=== PATIENT | female | born 1960 | race Caucasian/White ===

== ENCOUNTER 2018-03-10 09:56 | Outpatient (CLI) | payer MEDICARE | END 2018-03-10 09:57 | disposition home or self-care (01) | LOC: BICMAMMO 09:56 | PROVIDERS: ATTEND Nurse Practitioner Family | DX: Z12.31 Encounter for screening mammogram for malignant neoplasm of breast (principal); Z80.3 Family history of malignant neoplasm of breast | CPT/HCPCS: 77063; 77067 ==

== ENCOUNTER 2019-05-09 08:16 | Outpatient (CLI) | payer MEDICARE ==
--- NOTE | 2019-05-09 09:41 | MMO ---
Bilateral MAMMO Bilat Screen [facility]. CLINICAL HISTORY: Patient is 58 years old and is seen for screening. The patient has the following family history of breast cancer: 2 cousin females, maternal and great grandmother, maternal. The patient has no personal history of cancer. VIEWS: The views performed were: bilateral craniocaudal with tomosynthesis and bilateral mediolateral oblique with tomosynthesis. FILMS COMPARED: The present examination has been compared to prior imaging studies performed at [facility] on 10/16/2014, 12/17/2015, 12/18/2016 and 03/10/2018. MAMMOGRAM FINDINGS: The breasts are almost entirely fat. There are no suspicious masses, suspicious calcifications, or new areas of architectural distortion. IMPRESSION: THERE IS NO MAMMOGRAPHIC EVIDENCE OF MALIGNANCY. A ROUTINE FOLLOW-UP MAMMOGRAM IN 1 YEAR IS RECOMMENDED. THE RESULTS OF THIS EXAM WERE SENT TO THE PATIENT. ACR BI-RADS Category 1 - Negative MAMMOGRAPHY NOTE: 1. A negative mammogram report should not delay a biopsy if a dominant of clinically suspicious mass is present. 2. Approximately 10% to 15% of breast cancers are not detected by mammography. 3. Adenosis and dense breasts may obscure an underlying neoplasm. Reported by: LANEY NICHOLS MD Electonically Signed: [id number]
== END 2019-05-09 08:17 | disposition home or self-care (01) ==
LOC: BICMAMMO 08:16
PROVIDERS: ATTEND Nurse Practitioner Family
DX: Z12.31 Encounter for screening mammogram for malignant neoplasm of breast (principal); Z80.3 Family history of malignant neoplasm of breast
CPT/HCPCS: 77063; 77067

== ENCOUNTER 2022-09-09 13:08 | Inpatient (IN) | payer MEDICARE, OTHER, SELFPAY ==
[~2022-09-09 13:08] MED LIST: Iopamidol-370 76% 500 ML 1 ML ONE
[2022-09-09] MEDS ORDERED: Ondansetron PF 4 MG/2 ML Vial ONE (13:24)
[2022-09-09 13:50] LABS: Hemoglobin 16.1 g/dL (12.0-16.0); Mean Corpuscular HGB CONC 33.5 g/dL (32.0-36.0); Mean Corpuscular Hemoglobin 33.1 pg (27.0-31.0); Platelet Count 376 10x3/uL (130-400); RBC Distribution Width 13.9 % (11.5-14.5); Red Blood Cell (RBC) Count 4.85 mill/uL (4.20-5.40); White Blood Cell (WBC) Count 19.2 10x3/uL (4.8-10.8)
[2022-09-09 14:14] LABS: Band 2 % (5-11); Lymphocytes 9 % (21-51); MDiff Complete? YES; Monocytes 9 % (0-10); Neutrophil 80 % (42-75); Platelet Morphology Comment Appears Adequate; RBC Morphology Normal
[2022-09-09 14:19] LABS: Bacteria/HPF 4+ HPF (None Seen); Bilirubin Negative (Negative); Blood, Urine 1+ (Negative); Glucose, Urine (Dipstick) Normal (Negative); Ketone, Urine Negative (Negative); Leukocyte 500 Leu/uL (Negative); Nitrite Negative (Negative); Protein, Urine (Dipstick) 20 mg/dL (Neg-Trace); Specific Gravity, Urine 1.011 (1.002-1.036); Squamous Epithelial None Seen HPF (0-3); Urobilinogen Normal mg/dL (Less than 2); WBC/HPF Greater than 50 HPF (0-3)
[2022-09-09 14:21] LABS: Clarity Turbid (Clear)
[2022-09-09] MEDS ORDERED: cefTRIAXone\\ROCEPHIN 1 GM VIAL ONE (15:03)
[2022-09-09] MEDS ORDERED: VANCOMYCIN 1.75 GM/500 ML BAG 1.75 GM in Premix Bag 1 BAG IVPB SCH (15:15)
[2022-09-09 15:24] LABS: Albumin 3.3 g/dL (3.4-4.8)
[2022-09-09 15:25] LABS: Chloride 93 mmol/L (98-107)
[2022-09-09 15:26] LABS: Calcium 10.2 mg/dL (7.8-10.44); Potassium 3.1 mmol/L (3.5-5.1); Sodium 130 mmol/L (136-145)
[2022-09-09 15:27] LABS: Glucose 103 mg/dL (80-115); Protein, Total 7.3 g/dL (5.8-8.1)
[2022-09-09 15:28] LABS: Anion Gap 14 mmol/L (10-20); Carbon Dioxide 26 mmol/L (23-31)
[2022-09-09 15:30] LABS: Alkaline Phosphatase 172 U/L (40-110); Calc. Creatinine Clearance 0 mL/min (70-130); Estimated GFR 33
[2022-09-09 15:31] LABS: BUN (Urea Nitrogen) 51 mg/dL (9.8-20.1)
[2022-09-09 15:32] LABS: AST (SGOT) 30 U/L (5-34)
[2022-09-09 15:33] LABS: ALT (SGPT) 32 U/L (8-55); Lipase 43 U/L (8-78)
[2022-09-09 18:02] LABS: SARS-CoV-2 NAA Rapid Test Not Detected (NotDetected)
[2022-09-09] MEDS ORDERED: Ondansetron ODT 4 MG TAB PO PRN (18:05)
[2022-09-09] MEDS ORDERED: Guaifenesin DM 100-10/5 ML UDCUP PO PRN (18:05)
[2022-09-09] MEDS ORDERED: Ondansetron PF 4 MG/2 ML Vial IVP PRN (18:05)
[2022-09-09] MEDS ORDERED: Acetaminophen 325 MG TAB PO PRN (18:05)
[2022-09-09] MEDS ORDERED: Acetaminophen 650 MG Suppository PR PRN (18:05)
[2022-09-09] MEDS ORDERED: Sodium Chloride 0.9% 1,000 ML IV SCH (18:15)
[2022-09-09] MEDS ORDERED: Bisacodyl 5 MG TAB PO SCH (18:15)
[2022-09-09] MEDS ORDERED: Famotidine 20 MG TAB PO SCH (21:00)
[2022-09-09] MEDS ORDERED: Famotidine/PF 20 mg/2ml Vial SLOW IVP SCH (21:00)
[2022-09-10] MEDS ORDERED: Midodrine HCl 5 MG TAB PO SCH (02:15)
[2022-09-10] MEDS: Potassium Chloride 10 MEQ in Premix Bag 1 BAG IVPB SCH ×4 (05:46→12:47)
[2022-09-10 07:23] LABS: Hemoglobin 13.3 g/dL (12.0-16.0); Mean Corpuscular HGB CONC 33.5 g/dL (32.0-36.0); Mean Corpuscular Hemoglobin 32.9 pg (27.0-31.0); Mean Corpuscular Volume 98.3 fl (78.0-98.0); Mean Platelet Volume 7.6 fL (7.4-10.4); Platelet Count 332 10x3/uL (130-400); RBC Distribution Width 13.6 % (11.5-14.5); Red Blood Cell (RBC) Count 4.03 mill/uL (4.20-5.40); White Blood Cell (WBC) Count 15.6 10x3/uL (4.8-10.8)
[2022-09-10 07:48] LABS: Anion Gap 17 mmol/L (10-20); BUN (Urea Nitrogen) 42 mg/dL (9.8-20.1); Calc. Creatinine Clearance 60 mL/min (70-130); Calcium 9.6 mg/dL (7.8-10.44); Carbon Dioxide 24 mmol/L (23-31); Chloride 93 mmol/L (98-107); Estimated GFR 43; Glucose 82 mg/dL (80-115); Sodium 131 mmol/L (136-145)
[2022-09-10] MEDS: Mometasone 100 MCG/Formoterol 5 MCG 120 PUFF INHALER INH SCH ×2 (07:51→18:22)
[2022-09-10 07:55] LABS: Potassium 2.6 mmol/L (3.5-5.1)
[2022-09-10] MEDS: Metoclopramide HCl 10 MG TAB PO SCH ×4 (08:41→22:46)
[2022-09-10] MEDS: Sildenafil Citrate 20 MG TAB PO SCH ×3 (08:41→23:25)
[2022-09-10] MEDS: FLUoxetine HCl 20 MG CAP PO SCH (08:41)
[2022-09-10] MEDS: Metolazone 5 MG TAB PO SCH (08:41)
[2022-09-10] MEDS: Aspirin Chewable 81 MG TAB PO SCH (08:41)
[2022-09-10] MEDS: Polyethylene Glycol 3350 17 GM Packet PO SCH (08:41)
[2022-09-10] MEDS: Senokot 8.6 MG TAB PO SCH ×2 (08:41→21:56)
[2022-09-10] MEDS: Allopurinol 100 MG TAB PO SCH ×2 (08:41→21:56)
[2022-09-10] MEDS ORDERED: FLUoxetine HCl 20 MG CAP PO SCH (09:00)
[2022-09-10] MEDS ORDERED: Furosemide 40 MG TAB PO SCH (09:00)
[2022-09-10] MEDS ORDERED: Polyethylene Glycol 3350 17 GM Packet PO SCH (09:00)
[2022-09-10 10:44] LABS: Eosinophils 2 % (0-10); Lymphocytes 8 % (21-51); MDiff Complete? YES; Monocytes 5 % (0-10); Neutrophil 84 % (42-75); RBC Morphology Normal
[2022-09-10] MEDS ORDERED: Morphine 4 MG/ML VIAL SLOW IVP SCH (11:15)
[2022-09-10] MEDS ORDERED: HYDROcodone/Acetaminophen 10/325 mg Tablet PO PRN (11:22)
[2022-09-10] MEDS: Sodium Chloride 0.9% 1,000 ML IV SCH (12:27)
[2022-09-10] MEDS: cefTRIAXone\\ROCEPHIN 1 GM in Sodium Chloride 0.9% 100 ML IVPB SCH (14:29)
[2022-09-10] MEDS ORDERED: Cosyntropin 250 MCG VIAL SLOW IVP SCH (19:00)
[2022-09-10 19:56] LABS: Anion Gap 15 mmol/L (10-20); BUN (Urea Nitrogen) 36 mg/dL (9.8-20.1); Calc. Creatinine Clearance 71 mL/min (70-130); Calcium 9.1 mg/dL (7.8-10.44); Carbon Dioxide 23 mmol/L (23-31); Chloride 94 mmol/L (98-107); Estimated GFR 53; Glucose 88 mg/dL (80-115); Sodium 130 mmol/L (136-145)
[2022-09-10 20:05] LABS: Potassium 2.4 mmol/L (3.5-5.1)
[2022-09-10] MEDS ORDERED: Electrolyte Replacement Protocol FS SCH (20:15)
[2022-09-10 20:59] LABS: Magnesium 1.3 mg/dL (1.6-2.6)
[2022-09-10] MEDS ORDERED: Magnesium Sulfate In Water 4 GM in Premix Bag 1 BAG IVPB SCH (21:30)
[2022-09-10] MEDS: Nystatin Powder 15 GM BOT TOP SCH (21:56)
[2022-09-10] MEDS: Rosuvastatin 10 MG TAB PO SCH (21:56)
[2022-09-10] MEDS: Melatonin 3 MG TAB PO SCH (21:56)
[2022-09-10] MEDS: Potassium Chloride 40 MEQ in Sodium Chloride 0.9% 250 ML 250 ML IVPB SCH (22:32)
[2022-09-11] MEDS: Sodium Chloride 0.9% 1,000 ML IV SCH ×2 (01:50→13:52)
[2022-09-11] MEDS: Potassium Chloride 40 MEQ in Sodium Chloride 0.9% 250 ML 250 ML IVPB SCH (03:36)
[2022-09-11] MEDS: Levothyroxine 150 MCG TAB PO SCH (05:06)
[2022-09-11 06:01] LABS: #Eosinphils 0.4 thou/uL (0.0-0.7); #Lymphocytes 1.2 thou/uL (1.20-3.40); #Monocytes 1.3 thou/uL (0.11-0.59); #Neutrophils 9.9 thou/uL (1.40-6.50); %Basophils 0.3 % (0.0-1.0); %Eosinophils 3.4 % (0.0-10.0); %Lymphocytes 9.1 % (21.0-51.0); %Monocytes 9.9 % (0.0-10.0); %Neutrophils 77.3 % (42.0-75.0); Hemoglobin 12.5 g/dL (12.0-16.0); Mean Corpuscular HGB CONC 32.8 g/dL (32.0-36.0); Mean Corpuscular Hemoglobin 32.8 pg (27.0-31.0); Mean Corpuscular Volume 99.8 fl (78.0-98.0); Mean Platelet Volume 7.5 fL (7.4-10.4); Platelet Count 306 10x3/uL (130-400); RBC Distribution Width 13.7 % (11.5-14.5); Red Blood Cell (RBC) Count 3.81 mill/uL (4.20-5.40); White Blood Cell (WBC) Count 12.9 10x3/uL (4.8-10.8)
[2022-09-11 06:24] LABS: Anion Gap 15 mmol/L (10-20); BUN (Urea Nitrogen) 29 mg/dL (9.8-20.1); Calc. Creatinine Clearance 76 mL/min (70-130); Calcium 9.3 mg/dL (7.8-10.44); Carbon Dioxide 22 mmol/L (23-31); Chloride 97 mmol/L (98-107); Estimated GFR 57; Glucose 93 mg/dL (80-115); Sodium 131 mmol/L (136-145)
[2022-09-11 06:29] LABS: Potassium 2.6 mmol/L (3.5-5.1)
[2022-09-11] MEDS: Mometasone 100 MCG/Formoterol 5 MCG 120 PUFF INHALER INH SCH ×2 (07:25→18:47)
[2022-09-11 08:55] LABS: Magnesium 2.6 mg/dL (1.6-2.6)
[2022-09-11] MEDS: Pantoprazole 40 MG VIAL IVP SCH (09:42)
[2022-09-11] MEDS: Polyethylene Glycol 3350 17 GM Packet PO SCH (09:42)
[2022-09-11] MEDS: Sildenafil Citrate 20 MG TAB PO SCH ×3 (09:43→20:14)
[2022-09-11] MEDS: Metolazone 5 MG TAB PO SCH (09:43)
[2022-09-11] MEDS: FLUoxetine HCl 20 MG CAP PO SCH (09:43)
[2022-09-11] MEDS: Potassium Chloride 20 MEQ TAB PO SCH ×2 (09:43→13:06)
[2022-09-11] MEDS: Metoclopramide HCl 10 MG TAB PO SCH ×4 (09:43→20:13)
[2022-09-11] MEDS: Aspirin Chewable 81 MG TAB PO SCH (09:43)
[2022-09-11] MEDS: Nystatin Powder 15 GM BOT TOP SCH ×3 (09:44→20:14)
[2022-09-11] MEDS: Allopurinol 100 MG TAB PO SCH ×2 (09:44→20:13)
[2022-09-11] MEDS: Senokot 8.6 MG TAB PO SCH ×2 (09:44→20:14)
[2022-09-11] MEDS: cefTRIAXone\\ROCEPHIN 1 GM in Sodium Chloride 0.9% 100 ML IVPB SCH (15:07)
[2022-09-11] MEDS: Potassium Chloride 20 MEQ in Premix Bag 1 BAG IVPB SCH ×2 (16:12→18:36)
[2022-09-11] MEDS: Melatonin 3 MG TAB PO SCH (20:13)
[2022-09-11] MEDS: Rosuvastatin 10 MG TAB PO SCH (20:13)
[2022-09-12] MEDS: Sodium Chloride 0.9% 1,000 ML IV SCH ×2 (03:01→15:55)
[2022-09-12] MEDS: Levothyroxine 150 MCG TAB PO SCH (05:40)
[2022-09-12] MEDS: Mometasone 100 MCG/Formoterol 5 MCG 120 PUFF INHALER INH SCH ×2 (07:15→19:19)
[2022-09-12] MEDS: Pantoprazole 40 MG VIAL IVP SCH (08:44)
[2022-09-12] MEDS: Nystatin Powder 15 GM BOT TOP SCH ×3 (08:44→21:55)
[2022-09-12] MEDS: Sildenafil Citrate 20 MG TAB PO SCH ×3 (08:44→21:53)
[2022-09-12] MEDS: Aspirin Chewable 81 MG TAB PO SCH (08:44)
[2022-09-12] MEDS: Metoclopramide HCl 10 MG TAB PO SCH ×4 (08:44→21:55)
[2022-09-12] MEDS: Allopurinol 100 MG TAB PO SCH ×2 (08:44→21:55)
[2022-09-12] MEDS: FLUoxetine HCl 20 MG CAP PO SCH (08:44)
[2022-09-12] MEDS: Senokot 8.6 MG TAB PO SCH ×2 (08:44→22:08)
[2022-09-12] MEDS: Polyethylene Glycol 3350 17 GM Packet PO SCH (08:44)
[2022-09-12 09:24] LABS: ALT (SGPT) 22 U/L (8-55); AST (SGOT) 27 U/L (5-34); Albumin 2.8 g/dL (3.4-4.8); Alkaline Phosphatase 125 U/L (40-110); Anion Gap 12 mmol/L (10-20); BUN (Urea Nitrogen) 21 mg/dL (9.8-20.1); Bilirubin, Total 0.6 mg/dL (0.2-1.2); Calc. Creatinine Clearance 102 mL/min (70-130); Calcium 9.4 mg/dL (7.8-10.44); Carbon Dioxide 19 mmol/L (23-31); Chloride 103 mmol/L (98-107); Estimated GFR 82; Globulin 3.4 g/dL (2.4-3.5); Glucose 94 mg/dL (80-115); Potassium 3.5 mmol/L (3.5-5.1); Protein, Total 6.2 g/dL (5.8-8.1); Sodium 130 mmol/L (136-145)
[2022-09-12] MEDS ORDERED: Magnesium 2 GM/50 ML(in water) 2 GM in Premix Bag 1 BAG IVPB SCH (10:45)
[2022-09-12] MEDS ORDERED: Potassium Chloride 20 MEQ TAB PO SCH ×2 (12:00→21:45)
[2022-09-12] MEDS: cefTRIAXone\\ROCEPHIN 1 GM in Sodium Chloride 0.9% 100 ML IVPB SCH (14:05)
[2022-09-12 18:17] LABS: Potassium 3.5 mmol/L (3.5-5.1)
[2022-09-12] MEDS: Rosuvastatin 10 MG TAB PO SCH (21:55)
[2022-09-12] MEDS: Melatonin 3 MG TAB PO SCH (21:55)
[2022-09-13] MEDS: Sodium Chloride 0.9% 1,000 ML IV SCH ×2 (03:58→17:32)
[2022-09-13] MEDS: Levothyroxine 150 MCG TAB PO SCH (03:58)
[2022-09-13] MEDS: Mometasone 100 MCG/Formoterol 5 MCG 120 PUFF INHALER INH SCH ×2 (07:31→18:39)
[2022-09-13 08:17] LABS: Magnesium 1.9 mg/dL (1.6-2.6)
[2022-09-13] MEDS: Polyethylene Glycol 3350 17 GM Packet PO SCH (08:47)
[2022-09-13] MEDS: Aspirin Chewable 81 MG TAB PO SCH (08:48)
[2022-09-13] MEDS: Allopurinol 100 MG TAB PO SCH ×2 (08:49→20:26)
[2022-09-13] MEDS: FLUoxetine HCl 20 MG CAP PO SCH (08:49)
[2022-09-13] MEDS: Senokot 8.6 MG TAB PO SCH ×2 (08:50→20:26)
[2022-09-13] MEDS: Nystatin Powder 15 GM BOT TOP SCH ×3 (08:50→20:30)
[2022-09-13] MEDS: Metoclopramide HCl 10 MG TAB PO SCH ×4 (08:50→20:25)
[2022-09-13] MEDS: Pantoprazole 40 MG VIAL IVP SCH (08:50)
[2022-09-13] MEDS: Sildenafil Citrate 20 MG TAB PO SCH ×3 (08:50→20:24)
[2022-09-13] MEDS ORDERED: Magnesium 2 GM/50 ML(in water) 2 GM in Premix Bag 1 BAG IVPB SCH (09:45)
[2022-09-13] MEDS ORDERED: PROPOFOL 200 MG/20 ML VIAL ONE (12:02)
[2022-09-13] MEDS: cefTRIAXone\\ROCEPHIN 1 GM in Sodium Chloride 0.9% 100 ML IVPB SCH (16:23)
[2022-09-13] MEDS: Melatonin 3 MG TAB PO SCH (20:24)
[2022-09-13] MEDS: Rosuvastatin 10 MG TAB PO SCH (20:26)
[2022-09-14] MEDS: Levothyroxine 150 MCG TAB PO SCH (05:18)
[2022-09-14] MEDS: Mometasone 100 MCG/Formoterol 5 MCG 120 PUFF INHALER INH SCH ×2 (07:17→19:47)
[2022-09-14 07:50] LABS: #Basophils 0.1 thou/uL (0.0-0.2); #Eosinphils 0.4 thou/uL (0.0-0.7); #Lymphocytes 1.1 thou/uL (1.20-3.40); #Monocytes 1.1 thou/uL (0.11-0.59); #Neutrophils 8.1 thou/uL (1.40-6.50); %Basophils 0.7 % (0.0-1.0); %Eosinophils 4.1 % (0.0-10.0); %Lymphocytes 10.4 % (21.0-51.0); %Monocytes 9.8 % (0.0-10.0); %Neutrophils 74.9 % (42.0-75.0); Hemoglobin 11.7 g/dL (12.0-16.0); Mean Corpuscular HGB CONC 33.7 g/dL (32.0-36.0); Mean Corpuscular Hemoglobin 33.5 pg (27.0-31.0); Mean Corpuscular Volume 99.3 fl (78.0-98.0); Mean Platelet Volume 7.7 fL (7.4-10.4); Platelet Count 279 10x3/uL (130-400); RBC Distribution Width 13.9 % (11.5-14.5); Red Blood Cell (RBC) Count 3.49 mill/uL (4.20-5.40); White Blood Cell (WBC) Count 10.8 10x3/uL (4.8-10.8)
[2022-09-14 08:12] LABS: ALT (SGPT) 20 U/L (8-55); AST (SGOT) 19 U/L (5-34); Albumin 2.7 g/dL (3.4-4.8); Alkaline Phosphatase 103 U/L (40-110); Anion Gap 12 mmol/L (10-20); BUN (Urea Nitrogen) 9 mg/dL (9.8-20.1); Bilirubin, Total 0.5 mg/dL (0.2-1.2); Calc. Creatinine Clearance 119 mL/min (70-130); Calcium 9.1 mg/dL (7.8-10.44); Carbon Dioxide 19 mmol/L (23-31); Chloride 106 mmol/L (98-107); Estimated GFR 98; Globulin 2.9 g/dL (2.4-3.5); Glucose 82 mg/dL (80-115); Magnesium 2.1 mg/dL (1.6-2.6); Potassium 2.7 mmol/L (3.5-5.1); Protein, Total 5.6 g/dL (5.8-8.1); Sodium 134 mmol/L (136-145)
[2022-09-14] MEDS: Senokot 8.6 MG TAB PO SCH ×2 (08:22→20:30)
[2022-09-14] MEDS: Polyethylene Glycol 3350 17 GM Packet PO SCH (08:22)
[2022-09-14] MEDS: Sildenafil Citrate 20 MG TAB PO SCH ×3 (08:23→20:28)
[2022-09-14] MEDS: Allopurinol 100 MG TAB PO SCH ×2 (08:23→20:25)
[2022-09-14] MEDS: Metoclopramide HCl 10 MG TAB PO SCH ×4 (08:23→20:25)
[2022-09-14] MEDS: Aspirin Chewable 81 MG TAB PO SCH (08:23)
[2022-09-14] MEDS: Nystatin Powder 15 GM BOT TOP SCH ×3 (08:24→20:29)
[2022-09-14] MEDS: FLUoxetine HCl 20 MG CAP PO SCH (08:24)
[2022-09-14] MEDS: Sodium Chloride 0.9% 1,000 ML IV SCH (08:24)
[2022-09-14] MEDS ORDERED: Sodium Chloride 0.9% 500 ML IV SCH (09:45)
[2022-09-14] MEDS ORDERED: Potassium Chloride 20 MEQ TAB PO SCH (10:00)
[2022-09-14] MEDS: Potassium Chloride 20 MEQ TAB PO SCH ×3 (10:09→20:25)
[2022-09-14] MEDS: cefTRIAXone\\ROCEPHIN 1 GM in Sodium Chloride 0.9% 100 ML IVPB SCH (14:48)
[2022-09-14] MEDS: Rosuvastatin 10 MG TAB PO SCH (20:25)
[2022-09-14] MEDS: Melatonin 3 MG TAB PO SCH (20:27)
[2022-09-14] MEDS ORDERED: Vancomycin 1 GM in Premix Bag 1 BAG IVPB SCH (21:15)
[2022-09-14] MEDS ORDERED: VANCOMYCIN 2 GRAM/500 ML BAG 2 GM in Premix Bag 1 BAG IVPB SCH (22:00)
[2022-09-15] MEDS: Potassium Chloride 20 MEQ TAB PO SCH ×2 (04:53→11:20)
[2022-09-15] MEDS: Levothyroxine 150 MCG TAB PO SCH (04:54)
[2022-09-15] MEDS: Mometasone 100 MCG/Formoterol 5 MCG 120 PUFF INHALER INH SCH ×2 (06:20→18:30)
[2022-09-15 06:55] LABS: #Basophils 0.1 thou/uL (0.0-0.2); #Eosinphils 0.5 thou/uL (0.0-0.7); #Lymphocytes 1.2 thou/uL (1.20-3.40); #Monocytes 1.2 thou/uL (0.11-0.59); #Neutrophils 7.9 thou/uL (1.40-6.50); %Basophils 0.6 % (0.0-1.0); %Eosinophils 4.2 % (0.0-10.0); %Lymphocytes 11.1 % (21.0-51.0); %Monocytes 11.2 % (0.0-10.0); Hemoglobin 11.2 g/dL (12.0-16.0); Mean Corpuscular HGB CONC 33.4 g/dL (32.0-36.0); Mean Corpuscular Hemoglobin 33.4 pg (27.0-31.0); Mean Platelet Volume 7.6 fL (7.4-10.4); Platelet Count 297 10x3/uL (130-400); RBC Distribution Width 14.1 % (11.5-14.5); Red Blood Cell (RBC) Count 3.36 mill/uL (4.20-5.40); White Blood Cell (WBC) Count 10.8 10x3/uL (4.8-10.8)
[2022-09-15 07:23] LABS: ALT (SGPT) 16 U/L (8-55); AST (SGOT) 17 U/L (5-34); Albumin 2.7 g/dL (3.4-4.8); Alkaline Phosphatase 100 U/L (40-110); Anion Gap 11 mmol/L (10-20); BUN (Urea Nitrogen) 8 mg/dL (9.8-20.1); Bilirubin, Total 0.5 mg/dL (0.2-1.2); Calc. Creatinine Clearance 117 mL/min (70-130); Calcium 9.2 mg/dL (7.8-10.44); Carbon Dioxide 17 mmol/L (23-31); Chloride 108 mmol/L (98-107); Estimated GFR 96; Globulin 2.9 g/dL (2.4-3.5); Glucose 81 mg/dL (80-115); Potassium 3.3 mmol/L (3.5-5.1); Protein, Total 5.6 g/dL (5.8-8.1); Sodium 133 mmol/L (136-145)
[2022-09-15] MEDS: Aspirin Chewable 81 MG TAB PO SCH (08:17)
[2022-09-15] MEDS: FLUoxetine HCl 20 MG CAP PO SCH (08:17)
[2022-09-15] MEDS: Sildenafil Citrate 20 MG TAB PO SCH ×2 (08:17→14:59)
[2022-09-15] MEDS: Metoclopramide HCl 10 MG TAB PO SCH ×3 (08:17→17:45)
[2022-09-15] MEDS: Allopurinol 100 MG TAB PO SCH (08:17)
[2022-09-15] MEDS: Senokot 8.6 MG TAB PO SCH (08:18)
[2022-09-15] MEDS: Polyethylene Glycol 3350 17 GM Packet PO SCH (08:18)
[2022-09-15] MEDS: Nystatin Powder 15 GM BOT TOP SCH ×2 (08:18→14:59)
[2022-09-15] MEDS ORDERED: Vancomycin 1 GM in Premix Bag 1 BAG IVPB SCH (09:00)
[2022-09-15] MEDS ORDERED: Vancomycin 1.5 GRAM/300 ML BAG 1.5 GM in Premix Bag 1 BAG IVPB SCH (10:00)
[2022-09-15 20:48] VITALS: BP 102/67; TEMP 97.8
== END 2022-09-15 20:11 | DRG 384 ==
LOC: ERS 13:08 → T4-A 17:57 → OBSVTOIN 09-10 12:03
PROVIDERS: ADMIT Internal Medicine; ATTEND Family Medicine
PROC: 0DB68ZX Excision of Stomach, Via Natural or Artificial Opening Endoscopic, Diagnostic (ICD-10-PCS; principal; 2022-09-13)
DX: K25.7 Chronic gastric ulcer without hemorrhage or perforation (principal); N30.01 Acute cystitis with hematuria; E87.1 Hypo-osmolality and hyponatremia; N17.9 Acute kidney failure, unspecified; I50.22 Chronic systolic (congestive) heart failure; K59.01 Slow transit constipation; I11.0 Hypertensive heart disease with heart failure; J45.909 Unspecified asthma, uncomplicated; G47.33 Obstructive sleep apnea (adult) (pediatric); E03.9 Hypothyroidism, unspecified; F32.A Depression, unspecified; E78.5 Hyperlipidemia, unspecified; M32.9 Systemic lupus erythematosus, unspecified; M79.7 Fibromyalgia; K80.20 Calculus of gallbladder without cholecystitis without obstruction; E86.0 Dehydration; I95.89 Other hypotension; E86.1 Hypovolemia; B95.62 Methicillin resistant Staphylococcus aureus infection as the cause of diseases classified elsewhere; B96.4 Proteus (mirabilis) (morganii) as the cause of diseases classified elsewhere; E87.6 Hypokalemia; K44.9 Diaphragmatic hernia without obstruction or gangrene; Z99.3 Dependence on wheelchair; Z91.040 Latex allergy status; Z79.51 Long term (current) use of inhaled steroids; Z79.899 Other long term (current) drug therapy; Z79.890 Hormone replacement therapy; Z79.82 Long term (current) use of aspirin; Z98.890 Other specified postprocedural states; Z99.81 Dependence on supplemental oxygen; Z20.822 Contact with and (suspected) exposure to COVID-19
CPT/HCPCS: 36415; 51701; 74177; 80048; 80053; 80400; 81003; 81015; 83605; 83690; 83735; 84443; 84484; 85025; 87040; 87077; 87086; 87186; 88305; 88341; 88342; 93005; 94640; 96361; 96365; 96366; 96367; 96375; 96376; 97139; C9113; G0378; J0696; J0834; J2270; J2405; J2704; J3370; J3475; J3480; J3490; J7030; J7050; Q0162; Q9967; S0028; U0002